=== PATIENT | female | born 1950 ===

== ENCOUNTER 2018-12-09 12:00 | Emergency (ER) | payer BC ==
[2018-12-09 14:00] VITALS: BP 162/87
--- NOTE | 2018-12-09 14:20 | ED ---
Bite Injury/Animal - HPI Summary HPI Summary: Patient is a 68-year-old female presenting to the ED with multiple puncture wounds and lacerations to the right forearm from a cat approximately 1 hour prior to arrival. Bleeding is well controlled on arrival. There is one laceration which is approximately 2.5 cm to the R forearm with several puncture wounds and scratches. She states she does not get the tetanus vaccine and is refusing this. vaccinations are UTD. patient works at a vet clinic. - History of Current Complaint Chief Complaint: EDAnimalBite Stated Complaint: BITTEN BY CAT PER PT Time Seen by Provider: 12/09/18 12:30 Hx Obtained From: Patient Onset of Injury: Happened hours ago Type of Bite: Animal Hx of Bite: Provoked by: Has Animal Been Immunized?: Yes Severity Initially: Moderate Severity Currently: Mild Pain Intensity: 1 Pain Scale Used: 0-10 Numeric Character: Puncture, Full-Thickness, Abrasion/Laceration Aggravating Factor(s): Nothing Alleviating Factor(s): Nothing Associated Signs And Symptoms: Positive: Negative Animal Available for Observation: Yes - Risk Factors Infection/Sepsis Risk Factors: Negative - Allergies/Home Medications Allergies/Adverse Reactions: Allergies Allergy/AdvReac Type Severity Reaction Status Date / Time Tetanus Vaccines and Toxoid Allergy Fever Verified 12/09/18 12:04 PMH/Surg Hx/FS Hx/Imm Hx Previously Healthy: Yes - Immunization History Hx Pertussis Vaccination: No Immunizations Up to Date: Yes Infectious Disease History: No Infectious Disease History: Denies: Traveled Outside the [place] in Last 30 Days - Social History Occupation: Employed Full-time Lives: With Family Alcohol Use: Daily Hx Substance Use: No Substance Use Type: Reports: None Smoking Status (MU): Never Smoked Tobacco Review of Systems Constitutional: Negative Negative: Fever, Chills, Fatigue, Skin Diaphoresis Negative: Palpitations, Chest Pain Negative: Shortness Of Breath, Cough Genitourinary: Negative Positive: no symptoms reported, see HPI Musculoskeletal: Negative Positive: Other - multiple abrasions, puncture wounds and lacerations Neurological: Negative All Other Systems Reviewed And Are Negative: Yes Physical Exam Triage Information Reviewed: Yes Vital Signs On Initial Exam: Initial Vitals Temp Pulse Resp BP Pulse Ox 98.6 F 54 18 183/87 97 12/09/18 12:02 12/09/18 12:02 12/09/18 12:02 12/09/18 12:02 12/09/18 12:02 Vital Signs Reviewed: Yes Appearance: Positive: Well-Appearing, Well-Nourished Skin: Positive: Warm, Skin Color Reflects Adequate Perfusion, Other - Multiple lacerations, abrasions and puncture wounds Head/Face: Positive: Normal Head/Face Inspection Eyes: Positive: EOMI, Conjunctiva Clear Neck: Positive: Supple, No Lymphadenopathy Respiratory/Lung Sounds: Positive: Clear to Auscultation, Breath Sounds Present Cardiovascular: Positive: RRR, Pulses are Symmetrical in both Upper and Lower Extremities Musculoskeletal: Positive: Strength/ROM Intact Neurological: Positive: Speech Normal Psychiatric: Positive: Affect/Mood Appropriate AVPU Assessment: Alert Diagnostics - Vital Signs Vital Signs Temp Pulse Resp BP Pulse Ox 12/09/18 13:57 97.8 F 55 16 162/87 98 12/09/18 12:02 98.6 F 54 18 183/87 97 - Laboratory Lab Statement: Any lab studies that have been ordered have been reviewed, and results considered in the medical decision making process. Bite Injury Course/Dx - Course Course Of Treatment: This patient is evaluated for Scratches and bites to the right forearm which occurred just prior to arrival. She is refusing tetanus on arrival. There is a 2.5 cm laceration, superficial, to the right forearm with several puncture wounds, lacerations and abrasions surrounding. She is given rx for augmentin. Abrasions were cleansed thoroughly using chlorhexidine and normal saline. Laceration was not closed due to possible infection and laceration was superficial. Antibiotic ointment applied, Telfa dressing applied and gauze wrap. - Diagnoses Differential Diagnosis/HQI/PQRI: Positive: Puncture, Superficial Infection Provider Diagnosis: Cat bite, Abrasions of multiple sites, Laceration Discharge - Sign-Out/Discharge Documenting (check all that apply): Patient Departure Patient Received Moderate/Deep Sedation with Procedure: No - Discharge Plan Condition: Stable Disposition: HOME Prescriptions: Amoxicillin/Clavulanate TAB* [Augmentin TAB 875*] 875 mg PO BID #14 tab Patient Education Materials: Animal Bite (ED) Referrals: Amina Ivy MD [Primary Care Provider] - Additional Instructions: Take 1 tab twice daily x 7 days Keep the area cleaned and covered with antibiotic ointment as well as gauze x 7 days - Billing Disposition and Condition Condition: STABLE Disposition: Home
== END 2018-12-09 13:57 | disposition home or self-care (01) ==
LOC: ED 12:00
DX: S51.811A Laceration without foreign body of right forearm, initial encounter (principal); S50.811A Abrasion of right forearm, initial encounter; W55.01XA Bitten by cat, initial encounter; Y92.531 Health care provider office as the place of occurrence of the external cause; Y99.0 Civilian activity done for income or pay; Z88.7 Allergy status to serum and vaccine
CPT/HCPCS: 99282